=== PATIENT | female | born 1945 | race Caucasian/White ===

== ENCOUNTER → 2017-02-12 | Outpatient (CLI) | payer MEDICARE, OTHER ==
[~2017-02-12] MED LIST: ASPIRIN (CHILDR81 MG PO; DIABETA2.5 MG PO; DITROPAN XL10 MG PO; GLUCOPHAGE500 MG PO; LEVAQUIN750 MG PO; LEVOTHROID(SYN75 MCG PO; LIPITOR80 MG PO; MOBIC15 MG PO; NEXIUM40 MG PO; VITAMIN B-121000 MCG PO; VITAMIN D-32000 UNI1 PO
== END ==
LOC: LGSMG 13:32
DX: I10 Essential (primary) hypertension (principal)